=== PATIENT | female | born 1990 | race Caucasian/White ===

== ENCOUNTER 2017-04-29 12:18 | Emergency (ER) | payer OTHER ==
[~2017-04-29] VITALS: Ht 167.6 cm; Wt 111.0 kg
[2017-04-29 12:34] VITALS: Ht 167.6 cm; Wt 111.0 kg
[2017-04-29] MEDS ORDERED: ONDANSETRON 4 MG INJ IV STA (13:20)
[2017-04-29] MEDS ORDERED: SOD CHLORIDE 0.9% 1,000 ML IV STA (13:20)
[2017-04-29] MEDS ORDERED: morphine 4 MG/ML VIAL IV STA (13:20)
[2017-04-29 14:07] LABS: BASOPHILS % 0.5 % (0.0-2.0); EOSINOPHILS # 0.3 10^3/ul (0.0-0.5); EOSINOPHILS % 3.1 % (0.0-7.0); HEMATOCRIT 40.4 % (37.0-47.0); HEMOGLOBIN 13.6 g/dl (12.0-16.0); LYMPHOCYTES # 1.9 10^3/ul (0.8-2.9); LYMPHOCYTES % 21.1 % (15.0-51.0); MEAN CORPUSCULAR HEMOGLOBIN 26.8 pg (29.0-33.0); MEAN CORPUSCULAR HGB CONC 33.7 g/dl (32.0-37.0); MEAN CORPUSCULAR VOLUME 79.7 fl (82.0-101.0); MEAN PLATELET VOLUME 12.2 fl (7.4-10.4); MONOCYTE # 0.6 10^3/ul (0.3-0.9); MONOCYTES % 6.3 % (0.0-11.0); NEUTROPHILS % 68.7 % (39.0-77.0); PLATELET COUNT 278 10^3/UL (140-415); RED BLOOD COUNT 5.07 10^6/ul (4.20-5.40); RED CELL DISTRIBUTION WIDTH 14.2 % (11.5-14.5); WHITE BLOOD COUNT 8.8 10^3/ul (4.8-10.8)
[2017-04-29 14:34] LABS: ADD UMIC YES; UR ASCORBIC ACID NEGATIVE (NEGATIVE); UR BILIRUBIN (Dip) NEGATIVE (NEGATIVE); UR BLOOD (Dip) NEGATIVE (NEGATIVE); UR CLARITY CLOUDY (CLEAR); UR COLOR AMBER (YELLOW); UR GLUCOSE (Dip) NEGATIVE (NEGATIVE); UR KETONES (Dip) NEGATIVE (NEGATIVE); UR LEUKOCYTE ESTERASE (Dip) 1+ Leu/ul (NEGATIVE); UR MUCUS MANY /HPF (NONE SEEN); UR NITRITE (Dip) NEGATIVE (NEGATIVE); UR RBC 12 /HPF (0-5); UR SPECIFIC GRAVITY (Dip) 1.029 (1.003-1.030); UR SQUAMOUS EPITHELIAL CELL MODERATE /HPF (FEW); UR TOTAL PROTEIN (Dip) 1+ mg/dl (NEGATIVE); UR UROBILINOGEN (Dip) 2+ mg/dL (NEGATIVE)
[2017-04-29] MEDS ORDERED: morphine 2 MG INJ IV STA (14:48)
[2017-04-29 15:18] LABS: ALBUMIN 4.5 g/dl (3.3-4.9); ALBUMIN/GLOBULIN RATIO 1.18; BILIRUBIN,INDIRECT 0.1 mg/dl (0-1.1); BILIRUBIN,TOTAL 0.1 mg/dl (0.2-1.3); CALCIUM 9.1 mg/dl (8.4-10.2); CREATININE 0.72 mg/dl (0.44-1.00); POTASSIUM 3.8 mmol/L (3.5-5.1); TOTAL PROTEIN 8.3 g/dl (6.1-8.1)
--- NOTE | 2017-04-29 17:09 | RADRPT ---
PROCEDURE: US Abdomen. CLINICAL INDICATION: abdominal pain TECHNIQUE: Multiple real-time images were acquired of the patient's right upper quadrant abdomen a nd retroperitoneum utilizing a high resolution transducer. COMPARISON: 05/17/2014 FINDINGS: The liver demonstrates normal echogenicity. The liver is slightly enlarged in size and no focal radha id lesions are seen. The liver measures 18.4 cm in length. The portal vein is patent with normal dir ection of flow. No intrahepatic biliary dilatation is seen. The patient is status post cholecystectomy. The common bile duct measures 4 mm in maximal dimension . The pancreas was not seen due to overlying bowel gas. No free fluid is identified. The right kidney is normal in size, and demonstrate normal echogenicity and cortical thickness. The right kidney measures 10.7 cm in long dimension. There is no evidence of hydronephrosis. There are no kidney stones. RPTAT: AA IMPRESSION: Status post cholecystectomy. Mild hepatomegaly. .Rolly Schuster MD, MD Date Time Electronically viewed and signed by .Rolly Schuster MD, on 04/29/2017 17:09 .S/
[2017-04-29] MEDS ORDERED: CIPR500T4 PO (17:13)
[2017-04-29] MEDS ORDERED: ONDA4TAB14 PO (17:13)
--- NOTE | 2017-04-29 17:17 | ERD ---
ER Documentation Chief Complaint Date/Time DATE: 04/29/17 TIME: 17:14 Chief Complaint abdominal pain,vomiting and diarrhea x 4 days HPI Patient is a 27-year-old female who presents with nausea vomiting and diarrhea for the past 4 days. She also states is been no blood in her diarrhea. She admits to fever at home. She has been taking Tylenol. She admits to dysuria but denies any hematuria or urinary frequency. Her last menstrual period was on April 19. Pain is worse with food. She has not taken any medications. ROS All systems reviewed and are negative except as per history of present illness. Medications Home Meds Active Scripts Ondansetron (Ondansetron Odt) 4 Mg Tab.rapdis, 4 MG PO Q6H Y for NAUSEA AND/OR VOMITING, #20 TAB Prov:MARIA T AGUILAR PA-C 04/29/17 Ciprofloxacin Hcl* (Ciprofloxacin Hcl*) 500 Mg Tablet, 500 MG PO BID for 7 Days , TAB Prov:MARIA T AGUILAR PA-C 04/29/17 Allergies Allergies: Coded Allergies: No Known Drug Allergies (Verified Allergy, Unknown, 03/27/15) PMhx/Soc History of Surgery: Yes (CHOLECYSTECTOMY) Anesthesia Reaction: No Hx Neurological Disorder: No Hx Respiratory Disorders: No Hx Cardiac Disorders: Yes (HEART MURMUR) Hx Psychiatric Problems: No Hx Miscellaneous Medical Probl: No Hx Alcohol Use: No Hx Substance Use: No Hx Tobacco Use: No Smoking Status: Never smoker FmHx Family History: No diabetes Physical Exam Vitals Vital Signs Date Time Temp Pulse Resp B/P Pulse Ox O2 Delivery O2 Flow Rate FiO2 04/29/17 12:34 97.3 94 18 113/95 98 Physical Exam INITIAL VITAL SIGNS: Reviewed by me GENERAL: Awake, alert and oriented x 4, well appearing, nontoxic, speaking in full sentences. No acute distress NECK: Supple. No masses. Full range of motion. No meningismus. No midline tenderness. RESPIRATORY: Clear to auscultation bilaterally. Symmetric chest wall rise. No wheezing or rales. No accessory muscle use. CV: Regular rate and rhythm. No murmurs, rubs, or gallops. ABDOMEN: Soft, non-distended. Nontender. Negative Durbin. Negative McBurneys point tenderness. No CVA tenderness bilaterally. No guarding. No rebound. : Deffered. Result Diagram: 04/29/17 1357 04/29/17 1435 Results 24 hrs Laboratory Tests Test 04/29/17 13:57 04/29/17 14:35 White Blood Count 8.810^3/ul Red Blood Count 5.0710^6/ul Hemoglobin 13.6g/dl Hematocrit 40.4% Mean Corpuscular Volume 79.7fl Mean Corpuscular Hemoglobin 26.8pg Mean Corpuscular Hemoglobin Concent 33.7g/dl Red Cell Distribution Width 14.2% Platelet Count 69137^3/UL Mean Platelet Volume 12.2fl Neutrophils % 68.7% Lymphocytes % 21.1% Monocytes % 6.3% Eosinophils % 3.1% Basophils % 0.5% Nucleated Red Blood Cells % 0.0/100WBC Neutrophils # 6.010^3/ul Lymphocytes # 1.910^3/ul Monocytes # 0.610^3/ul Eosinophils # 0.310^3/ul Basophils # 0.010^3/ul Nucleated Red Blood Cells # 0.010^3/ul Urine Color ASHLEY Urine Clarity CLOUDY Urine pH 5.0 Urine Specific Miles 1.029 Urine Ketones NEGATIVEmg/dL Urine Nitrite NEGATIVEmg/dL Urine Bilirubin NEGATIVEmg/dL Urine Urobilinogen 2+mg/dL Urine Leukocyte Esterase 1+Moshe/ul Urine Microscopic RBC 12/HPF Urine Microscopic WBC 15/HPF Urine Squamous Epithelial Cells MODERATE/HPF Urine Mucus MANY/HPF Urine Hemoglobin NEGATIVEmg/dL Urine Glucose NEGATIVEmg/dL Urine Total Protein 1+mg/dl Sodium Level 146mmol/L Potassium Level 3.8mmol/L Chloride Level 101mmol/L Carbon Dioxide Level 28mmol/L Anion Gap 21 Blood Urea Nitrogen 10mg/dl Creatinine 0.72mg/dl Glucose Level 90mg/dl Calcium Level 9.1mg/dl Total Bilirubin 0.1mg/dl Direct Bilirubin 0.00mg/dl Indirect Bilirubin 0.1mg/dl Aspartate Amino Transf (AST/SGOT) 154IU/L Alanine Aminotransferase (ALT/SGPT) 209IU/L Alkaline Phosphatase 148IU/L Total Protein 8.3g/dl Albumin 4.5g/dl Globulin 3.80g/dl Albumin/Globulin Ratio 1.18 Lipase 33U/L Current Medications Medications (Trade) Dose Ordered Sig/Mechelle Route PRN Reason Start Time Stop Time Status Last Admin Dose Admin Sodium Chloride (NS) 1,000 ml @ 1,000 mls/hr Q1H STAT IV 04/29/17 13:20 04/29/17 14:19 DC 04/29/17 13:50 Morphine Sulfate (morphine) 4 mg ONCE STAT IV 04/29/17 13:20 04/29/17 13:23 DC 04/29/17 13:50 Ondansetron HCl (Zofran Inj) 4 mg ONCE STAT IV 04/29/17 13:20 04/29/17 13:23 DC 04/29/17 13:51 Morphine Sulfate (morphine) 2 mg ONCE STAT IV 04/29/17 14:48 04/29/17 14:50 DC 04/29/17 14:54 Procedures/MDM Patient presents with abdominal pain. Patients is alert, oriented, well appearing, and in no distress with normal vital signs. There is no fever, tachycardia, or tachypnea. The differential diagnosis includes but is not limited to appendicitis, cholelithiasis, cholecystitis, pancreatitis, hepatitis , gastritis, peptic ulcer disease, bowel obstruction, diverticulitis, renal disease including stones, torsion, AAA, pyelonephritis, and others. Her CBC is normal. She does have elevated liver enzymes and therefore ordered an ultrasound of the gallbladder which showed she was status post cholecystectomy. She has no CVA tenderness but has had episodes of vomiting. She is afebrile. Urine does show evidence of infection she will be treated outpatient with Cipro and Zofran. Patient counseled regarding my diagnostic impression and care plan. Prior to discharge all questions answered. Pt agrees with treatment plan and understands strict return precautions. Pt is instructed to follow up with primary care provider within 24-48 hours. Precautionary instructions provided including instructions to return to the ER if not improving or for any worsening or changing symptoms or concerns. Departure Diagnosis: Primary Impression: Pyelonephritis Condition: Stable Patient Instructions: Pyelonephritis Additional Instructions: Call your primary care doctor TOMORROW for an appointment during the next 1-2 days.See the doctor sooner or return here if your condition worsens before your appointment time. MARIA T AGUILAR PA-C Apr 29, 2017 17:17
[2017-04-29 17:26] VITALS: BP 135/80; PULSE 80; RESP 16; TEMP 98.4
== END 2017-04-29 17:27 | disposition home or self-care (01) ==
LOC: FTE 12:18
DX: N12 Tubulo-interstitial nephritis, not specified as acute or chronic (principal)
CPT/HCPCS: 36415; 76705; 80053; 81001; 83690; 85025; 96374; 96375; 96376; J2270; J2405; J7030; Z7502

== ENCOUNTER 2018-09-27 12:51 | Emergency (ER) | payer OTHER ==
[~2018-09-27] VITALS: Ht 162.6 cm; Wt 118.2 kg
[~2018-09-27 12:51] MED LIST: CIPR500T4 PO; ONDA4TAB14 PO
[2018-09-27 12:54] VITALS: BP 140/75; PULSE 100; RESP 20; Ht 162.6 cm; Wt 118.2 kg
--- NOTE | 2018-09-27 13:15 | ERD ---
ER Documentation Chief Complaint Chief Complaint fever and bodyaches x 5 days HPI 28-year-old female, presents to the emergency department, complaining of persistent fever, cough and body aches for 5 days. The patient was seen by her primary doctor 2 days ago and started on amoxicillin, cough medication and ibuprofen with mild improvement of the symptoms. The patient denies chest pain, no shortness of breath, no rashes, no gas or intestinal symptoms, no urinary symptoms. ROS All systems reviewed and are negative except as per history of present illness. Medications Home Meds Active Scripts Ibuprofen* (Motrin*) 600 Mg Tab, 600 MG PO TID PRN for PAIN AND OR ELEVATED TEMP, #30 TAB Prov:VINH REARDON MD 09/27/18 Albuterol Sulfate* (Proair HFA*) 8.5 Gm Hfa.aer.ad, 2 PUFF INH Q4H PRN for WHEEZING AND SOB, #1 INHALER Prov:VINH REARDON MD 09/27/18 Azithromycin* (Zithromax*) 250 Mg Tablet, 250 MG PO .ZPACK DIRECTED, #6 TAB TAKE 500 MG (2 TABS) THE FIRST DAY THEN 250 MG (1 TAB) DAYS 2-5 Prov:VINH REARDON MD 09/27/18 Ondansetron (Ondansetron Odt) 4 Mg Tab.rapdis, 4 MG PO Q6H PRN for NAUSEA AND/OR VOMITING, #20 TAB Prov:MARIA T AGUILAR PA-C 04/29/17 Ciprofloxacin Hcl* (Ciprofloxacin Hcl*) 500 Mg Tablet, 500 MG PO BID for 7 Days, TAB Prov:MARIA T AGUILAR PA-C 04/29/17 Allergies Allergies: Coded Allergies: No Known Drug Allergies (Verified Allergy, Unknown, 03/27/15) PMhx/Soc History of Surgery: Yes (CHOLECYSTECTOMY) Anesthesia Reaction: No Hx Neurological Disorder: No Hx Respiratory Disorders: No Hx Cardiac Disorders: Yes (HEART MURMUR) Hx Psychiatric Problems: No Hx Miscellaneous Medical Probl: No Hx Alcohol Use: No Hx Substance Use: No Hx Tobacco Use: No Smoking Status: Never smoker FmHx Family History: diabetes; No coronary disease Physical Exam Vitals Vital Signs Date Temp Pulse Resp B/P (MAP) Pulse Ox O2 O2 Flow FiO2 Time Delivery Rate 09/27/18 98.8 100 20 140/75 100 12:54 (96) Physical Exam Const: No acute distress Head: Atraumatic Eyes: Normal Conjunctiva ENT: Normal External Ears, Nose and Mouth. Neck: Full range of motion. No meningismus. Resp: Bilateral rhonchi to auscultation. Cardio: Regular rate and rhythm, no murmurs Abd: Soft, non tender, non distended. Normal bowel sounds Skin: No petechiae or rashes Back: No midline or flank tenderness Ext: No cyanosis, or edema Neur: Awake and alert Psych: Normal Mood and Affect Results 24 hrs Laboratory Tests Test 09/27/18 13:23 09/27/18 13:24 Bedside Urine pH (LAB) 6.0 Bedside Urine Protein (LAB) 1+ Bedside Urine Glucose (UA) Negative Bedside Urine Ketones (LAB) Trace Bedside Urine Blood Trace-intact Bedside Urine Nitrite (LAB) Negative Bedside Urine Leukocyte Esterase (L Negative POC Beta HCG, Qualitative NEGATIVE Patient: NAOMI MARTINEZ : 1990 Age: 28 Sex: F MR #: [id number] DOS: 09/27/18 1313 Ordering MD: VINH REARDON MD Location: [facility] Room/Bed: PROCEDURE: XR Chest PA and Lateral CLINICAL INDICATION: Cough, fever TECHNIQUE: PA and Lateral views of the chest were obtained. COMPARISON: 03/27/2015 FINDINGS: Cardiovascular: The cardiovascular silhouette appears unremarkable. Lung Cantrell: Air space opacification has developed within the left upper lobe. Pleural Spaces: No pneumothorax is identified and no effusion is evident. Osseous Structures: The osseous structures appear intact. Soft Tissues: The soft tissues appear generous. IMPRESSION: 1. Interval development of air space opacification within the left upper lobe compatible with pneumonia. No effusion is evident. 2. Otherwise, stable and unremarkable chest. Physician Crescencio Date Time Electronically viewed and signed by Physician Crescencio on 09/27/2018 13:54 RH/ CC: VINH REARDON MD [id number] Procedures/MDM Vital signs stable, no respiratory distress. Differential diagnosis include but not limited to: Respiratory infection bacterial/viral/fungal. Croup, bronchiolitis, pneumonitis, allergies, GERD. Less likely foreign body aspiration, cardiac related. Physical examination radiological findings and clinical presentation consistent most likely with pneumonia. During the ED course the patient remained stable, no new complaints. Treatment options and clinical impression discussed with mother who agrees with management. The patient is stable to be treated outpatient and will be discharged home with a Rx for azithromycin, pro-air and ibuprofen. Some side effects of prescribed medications (headache, rash, nausea, vomiting, diarrhea, interactions with other medications) were reviewed. The patient needs to follow up with the primary care provider in the next 48h. If symptoms persist, worsen or new symptoms develop, then patient should return to the ED immediately. Disclaimer: Inadvertent spelling and grammatical errors are likely due to EHR/dictation software use and do not reflect on the overall quality of patient care. Also, please note that the electronic time recorded on this note does not necessarily reflect the actual time of the patient encounter. Departure Diagnosis: Primary Impression: Left lower lobe pneumonia Condition: Stable Additional Instructions: Thank you very much for allowing us to participate in your care. Your health and safety is our top priority at [facility]. Call your primary care doctor TOMORROW for an appointment during the next 2-4 days and bring all the information and medications prescribed. Have prescriptions filled and follow precisely the directions on the label. If the symptoms get worse and your provider is unavailable, return to the Emergency Department immediately. VINH REARDON MD Sep 27, 2018 13:15
[2018-09-27] MEDS ORDERED: ALBU8.5H8 INH (14:28)
[2018-09-27] MEDS ORDERED: IBUP-1542 PO (14:28)
[2018-09-27] MEDS ORDERED: AZIT250T PO (14:28)
== END 2018-09-27 14:49 | disposition home or self-care (01) ==
LOC: FTE 12:51
DX: J18.1 Lobar pneumonia, unspecified organism (principal)
CPT/HCPCS: 71046; 81003; 81025; Z7502